=== PATIENT | male | born 2000 | race Caucasian/White ===

== ENCOUNTER 2018-07-12 06:27 | Emergency (ER) | payer OTHER ==
--- NOTE | 2018-07-12 07:02 | ED Physician Chart ---
ED Chief Complaint/HPI - Patient Information Date Seen:: 07/12/18 Time Seen:: 06:56 Chief Complaint:: Nausea, vomiting and abdominal pain History of Present Illness:: 17 yo male had a cookie handed from a friend yesterday morning, then developed nausea, vomiting and abdominal pain since 6pm last evening. Pt stated chills, sore throat and abdominal pain. Pt denied diarrhea. Allergies:: Allergies Allergy/AdvReac Type Severity Reaction Status Date / Time latex Allergy Verified 07/12/18 06:38 Vitals:: Vital Signs - 8 hr 07/12/18 06:30 Temp 97.8 F HR 91 RR 18 BP 134/75 O2 Sat % 100 ED Review of Systems - Review of Systems General/Constitutional: No fever, Chills Skin: No rash ENT: Sore throat Neck: No neck pain Cardio Vascular: No chest pain Pulmonary: No SOB GI: Nausea, Vomiting, No diarrhea, Pain Musculoskeletal: No bone or joint pain Neurological: No focal symptoms ED Past Medical History - Past Medical History Past Medical History: No significant medical hx Social History: Smoker, No Alcohol, Illicit Drug Use (Marijuana) Surgical History: other (stribysm surgery) Family Medical History - Family Member Mother History Unknown: Yes ED Physical Exam - Physical Examination General/Constitutional: Awake, Alert Head: Atraumatic Eyes: PERRL Skin: No skin lesions ENMT: Nasal exam nl Neck: No nuchal rigidity Respiratory: No Wheeze/Rhonchi/Rales Cardio Vascular: RRR, No murmur, gallop, rubs, NL S1 S2 GI: Nondistended Other GI comments:: Epigastric and LLQ tenderness Extremities: normal strength in all extremities Neuro/Psych: Alert/oriented, No focal deficits ED Labs/Radiology/EKG Results - Lab Results Results: Laboratory Last Values WBC 10.6 Th/cmm (4.8-10.8) 07/12/18 07:17 RBC 4.97 Mil/cmm (4.30-5.70) 07/12/18 07:17 Hgb 14.8 gm/dL (12-16) 07/12/18 07:17 Hct 42.9 % (41.0-60) 07/12/18 07:17 MCV 86.3 fl (80-99) 07/12/18 07:17 MCH 29.9 pg (26.0-30.0) 07/12/18 07:17 MCHC Differential 34.6 pg (28.0-36.0) 07/12/18 07:17 RDW 12.0 % (11.5-20.0) 07/12/18 07:17 Plt Count 159 Th/cmm (150-400) 07/12/18 07:17 MPV 7.9 fl 07/12/18 07:17 Add Manual Diff YES 07/12/18 07:17 Band Neutrophils % 2 % (0-10) 07/12/18 07:17 Neutrophils (Manual) 84 % (40-80) H 07/12/18 07:17 Lymphocytes 9 % (20-50) L 07/12/18 07:17 Monocytes 5 % (2-10) 07/12/18 07:17 Eosinophils 0 % (0-5) 07/12/18 07:17 Basophils 0 % (0-3) 07/12/18 07:17 Sodium 141 mEq/L (136-145) 07/12/18 07:17 Potassium 3.8 mEq/L (3.5-5.1) 07/12/18 07:17 Chloride 106 mEq/L (98-107) 07/12/18 07:17 Carbon Dioxide 26.7 mEq/L (21.0-31.0) 07/12/18 07:17 Anion Gap 12.1 (7.0-16.0) 07/12/18 07:17 BUN 8 mg/dL (7-25) 07/12/18 07:17 Creatinine 0.9 mg/dL (0.7-1.3) 07/12/18 07:17 Est GFR ( Amer) > 60.0 ml/min (>90) 07/12/18 07:17 Est GFR (Non-Af Amer) > 60.0 ml/min 07/12/18 07:17 BUN/Creatinine Ratio 8.9 07/12/18 07:17 Glucose 128 mg/dL (70-105) H 07/12/18 07:17 Calcium 9.2 mg/dL (8.6-10.3) 07/12/18 07:17 Total Bilirubin 1.1 mg/dL (0.3-1.0) H 07/12/18 07:17 AST 17 U/L (13-39) 07/12/18 07:17 ALT 14 U/L (7-52) 07/12/18 07:17 Alkaline Phosphatase 69 U/L (34-104) 07/12/18 07:17 Total Protein 6.8 gm/dL (6.0-8.3) 07/12/18 07:17 Albumin 4.5 gm/dL (4.2-5.5) 07/12/18 07:17 Globulin 2.3 gm/dL 07/12/18 07:17 Albumin/Globulin Ratio 2.0 (1.0-1.8) H 07/12/18 07:17 Lipase 9 U/L (11-82) L 07/12/18 07:17 Urine Source MIDSTREAM 07/12/18 07:45 Urine Color YELLOW 07/12/18 07:45 Urine Clarity CLEAR (CLEAR) 07/12/18 07:45 Urine pH 7.0 (4.6 - 8.0) 07/12/18 07:45 Ur Specific Smock 1.020 (1.005-1.030) 07/12/18 07:45 Urine Protein 30 mg/dL (NEGATIVE) H 07/12/18 07:45 Urine Glucose (UA) NEGATIVE mg/dL (NEGATIVE) 07/12/18 07:45 Urine Ketones NEGATIVE mg/dL (NEGATIVE) 07/12/18 07:45 Urine Blood NEGATIVE (NEGATIVE) 07/12/18 07:45 Urine Nitrate NEGATIVE (NEGATIVE) 07/12/18 07:45 Urine Bilirubin NEGATIVE (NEGATIVE) 07/12/18 07:45 Urine Urobilinogen 0.2 E.U./dL (0.2 - 1.0) 07/12/18 07:45 Ur Leukocyte Esterase NEGATIVE (NEGATIVE) 07/12/18 07:45 Urine RBC 0-2 /hpf (0-5) H 07/12/18 07:45 Urine WBC 0-2 /hpf (0-5) 07/12/18 07:45 Ur Epithelial Cells OCCASIONAL /lpf (FEW) 07/12/18 07:45 Urine Bacteria NONE SEEN /hpf (NONE SEEN) 07/12/18 07:45 Urine Opiates Screen POSITIVE (NEGATIVE) H 07/12/18 07:45 Urine Methadone Screen NEGATIVE (NEGATIVE) 07/12/18 07:45 Ur Barbiturates Screen NEGATIVE (NEGATIVE) 07/12/18 07:45 Ur Tricyclics Screen NEGATIVE (NEGATIVE) 07/12/18 07:45 Ur Phencyclidine Scrn NEGATIVE (NEGATIVE) 07/12/18 07:45 Amphetamines Screen NEGATIVE (NEGATIVE) 07/12/18 07:45 U Methamphetamines Scrn NEGATIVE (NEGATIVE) 07/12/18 07:45 U Benzodiazepines Scrn NEGATIVE (NEGATIVE) 07/12/18 07:45 U Cocaine Metab Screen NEGATIVE (NEGATIVE) 07/12/18 07:45 U Cannabinoids Screen POSITIVE (NEGATIVE) H 07/12/18 07:45 ED Assessment - Assessment General Assessment: Abdominal pain and emesis, likely secondary to abuse of marijuana, or possibly gastroenteritis Polysubstance abuse Assessment/Comments:: CBC, CMP, lipase UA, UDS NS 1L iv bolus KCL 20mEq po ED Septic Shock - . Is Septic Shock (SBP<90, OR Lactate>4 mmol\L) present?: No - <6hrs of presentation: Vital Signs: Vital Signs - 8 hr 07/12/18 06:30 Temp 97.8 F HR 91 RR 18 BP 134/75 O2 Sat % 100 ED Reassessment (Disposition) - Reassessment Reassessment:: Dr. Qureshi assumed care at 07:00 on 07/12/18 Reassessment Condition:: Improved - Patient Disposition Discharge/Transfer:: Home
[2018-07-12] MEDS ORDERED: Sodium Chloride 0.9% 1,000 ML IV ONE (07:07)
[2018-07-12 07:23] LABS: HEMATOCRIT 42.9 % (41.0-60); HEMOGLOBIN 14.8 gm/dL (12-16); MEAN CELL VOLUME 86.3 fl (80-99); MEAN CORPUSCULAR HEMOGLOBIN 29.9 pg (26.0-30.0); MEAN CORPUSCULAR HGB CONC 34.6 pg (28.0-36.0); MEAN PLATELET VOLUME 7.9 fl; PLATELET COUNT 159 Th/cmm (150-400); RED BLOOD COUNT 4.97 Mil/cmm (4.30-5.70); WHITE BLOOD COUNT 10.6 Th/cmm (4.8-10.8)
[2018-07-12 07:44] LABS: ALBUMIN 4.5 gm/dL (4.2-5.5); ALKALINE PHOSPHATASE 69 U/L (34-104); ANION GAP 12.1 (7.0-16.0); BILIRUBIN,TOTAL 1.1 mg/dL (0.3-1.0); BUN - UREA NITROGEN 8 mg/dL (7-25); CALCIUM SERUM 9.2 mg/dL (8.6-10.3); CARBON DIOXIDE 26.7 mEq/L (21.0-31.0); CHLORIDE 106 mEq/L (98-107); CREATININE - SERUM 0.9 mg/dL (0.7-1.3); GFR AFRICAN-AMERICAN > 60.0 ml/min (>90); GFR NON AFRICAN-AMERICAN > 60.0 ml/min; GLUCOSE 128 mg/dL (70-105); LIPASE 9 U/L (11-82); POTASSIUM SERUM 3.8 mEq/L (3.5-5.1); SGOT 17 U/L (13-39); SGPT/ALT 14 U/L (7-52); SODIUM SERUM 141 mEq/L (136-145); TOTAL PROTEIN,SERUM 6.8 gm/dL (6.0-8.3)
[2018-07-12 07:59] LABS: BAND NEUTROPHILE 2 % (0-10); BASOPHIL 0 % (0-3); EOSINOPHIL 0 % (0-5); LYMPHOCYTE 9 % (20-50); MONOCYTE 5 % (2-10); NEUTROPHILS 84 % (40-80)
[2018-07-12 08:15] LABS: AMPHETAMINE URINE NEGATIVE (NEGATIVE); BARBITURATES URINE NEGATIVE (NEGATIVE); BENZODIAZEPINES QUAL URINE NEGATIVE (NEGATIVE); CANNABINOID THC POSITIVE (NEGATIVE); COCAINE METABOLITE QUAL URINE NEGATIVE (NEGATIVE); METHADONE URINE NEGATIVE (NEGATIVE); METHAMPHETAMINES QUAL URINE NEGATIVE (NEGATIVE); OPIATES (MORPHINE) QUAL. URINE POSITIVE (NEGATIVE); PHENCYCLIDINE (PCP) URINE NEGATIVE (NEGATIVE); TRICYCLICS (TCA) QUAL. URINE NEGATIVE (NEGATIVE)
[2018-07-12 08:23] LABS: URINE BILIRUBIN NEGATIVE (NEGATIVE); URINE BLOOD NEGATIVE (NEGATIVE); URINE GLUCOSE (UA) NEGATIVE (NEGATIVE); URINE KETONE NEGATIVE (NEGATIVE); URINE LEUKOCYTE ESTERASE NEGATIVE (NEGATIVE); URINE NITRATE NEGATIVE (NEGATIVE); URINE PROTEIN 30 mg/dL (NEGATIVE); URINE SOURCE MIDSTREAM; URINE UROBILINOGEN 0.2 E.U./dL (0.2 - 1.0)
[2018-07-12 08:30] LABS: URINE COLOR YELLOW
[2018-07-12 08:31] LABS: URINE BACTERIA NONE SEEN /hpf (NONE SEEN); URINE CLARITY CLEAR (CLEAR); URINE EPITHELIAL CELLS OCCASIONAL /lpf (FEW); URINE MICROSCOPIC INDICATED? YES; URINE RBC 0-2 /hpf (0-5); URINE WBC 0-2 /hpf (0-5)
[2018-07-12] MEDS ORDERED: IOHEXOL 300mgI/mL 100 ML VIAL IVP ONE (08:59)
[2018-07-12 09:19] LABS: INR 1.17 (0.5-1.4); PROTHROMBIN TIME (TEST) 12.1 SECONDS (9.5-11.5)
[2018-07-12 09:46] LABS: CHOLESTEROL 94 mg/dL (<200); CREATININE KINASE 85 U/L (30-223); HDL -HIGH DENSITY LIPOPROTEIN 42 mg/dL (23-92); TRIGLYCERIDES 78 mg/dL (<150)
--- NOTE | 2018-07-12 09:56 | Diagnostic Imaging Report ---
Portable chest x-ray History: Pain Allowing for portable technique the heart size is normal. No focal pulmonary parenchymal processes. No hilar or mediastinal abnormalities. Impression: No acute abnormalities.
--- NOTE | 2018-07-12 10:33 | Diagnostic Imaging Report ---
CT scan of the abdomen and pelvis with intravenous contrast History: Pain Total DLP equals 335 CTDI equals 7.3 Following administration of intravenous contrast, axial sections were obtained from the xiphoid process down to the pubic symphysis. Exam of the liver demonstrates a normal size and contour. No focal lesions are seen. The spleen appears normal. No abnormalities are seen in the region of the pancreas. The kidneys appear normal bilaterally. No focal lesions or hydronephrosis. The exam of the pelvis demonstrates preservation of normal fat planes. No abnormal soft tissue masses or abnormal fluid collections. The appendix is not clearly delineated. However, no abnormal masses or fluid collections seen within the right lower quadrant of the abdomen. Impression: No acute abnormalities
== END 2018-07-12 11:45 | disposition home or self-care (01) ==
LOC: ER 06:27
DX: K52.9 Noninfective gastroenteritis and colitis, unspecified (principal); K29.00 Acute gastritis without bleeding; F19.10 Other psychoactive substance abuse, uncomplicated; F17.200 Nicotine dependence, unspecified, uncomplicated; Z91.041 Radiographic dye allergy status; Z98.890 Other specified postprocedural states
CPT/HCPCS: 99284; 96374; 96375; 94760; 93005; 71045; 74177; 84484; 83880; 36415; 80307; 85007; 85025; 85610; 81001; 82550; 83690; 80053; 80061; C9113; J2405; J7030; Q9967; Z7502